=== PATIENT | male | born 1955 | race Caucasian/White ===

== ENCOUNTER 2019-12-30 16:06 | Emergency (ER) | payer OTHER ==
[~2019-12-30] VITALS: Ht 172.7 cm; Wt 69.9 kg
--- NOTE | 2019-12-30 16:20 | NUR ---
Patient transferred to bed 4 via wheelchair by tech. RN evaluating patient at bedside.
--- NOTE | 2019-12-30 16:23 | NUR ---
PT PLACED ON 3 LEAD ECG AND PULSE OX.
[2019-12-30 16:24] VITALS: BP 173/108
[2019-12-30] MEDS ORDERED: NACL 0.9% 1,000 ML IV ONE (16:25)
--- NOTE | 2019-12-30 16:28 | NUR ---
RADIOLOGY AT BEDSIDE
--- NOTE | 2019-12-30 16:33 | NUR ---
64 Y/M PRESENTS TO ED FEELING FAINT X 3 HOURS. PT ALSO REPORTS HEADACHE X 3 MONTHS C LIGHT SENSITIVITY, BLURRED VISION, NAUSEA. CHILLS X 2 DAY. PT REPORTS DRY MOUTH X 1 DAY. PT REPORTS 5/10 OCCIP[facility], ON AND OFF HEAD PAIN. PT WAS SEEN LAST FRIDAY FOR HTN OF 200/150. DENIES ANY CHEST PAIN, SOB, COUGH. PT A &O X 4, RR EVEN AND UNLABORED. LUNGS CLEAR. ABD SOFT. BS ACTIVE. PMH- HTN, INSOMNIA RX- LOSARTAN, LIPITOR, ZOLPIDEM, ZOLOFT NKDA
--- NOTE | 2019-12-30 16:37 | NUR ---
DR. ZIMMERMAN AT BEDSIDE.
[2019-12-30 16:54] LABS: BASOPHILS % (AUTO) 0.5 % (0.0-2.0); EOSINOPHILS % (AUTO) 0.6 % (0.0-4.0); HEMATOCRIT 41.3 % (36-52); HEMOGLOBIN 13.9 g/dL (12.0-18.0); LYMPHOCYTES % (AUTO) 13.5 % (20.5-51.1); MEAN CORPUSCULAR HEMOGLOBIN 30 pg (27-31); MEAN CORPUSCULAR HGB CONC 34 g/dL (33-37); MEAN CORPUSCULAR VOLUME 88.8 fL (80-94); MONOCYTES # (AUTO) 0.5 K/uL (0.8-1.0); MONOCYTES % (AUTO) 7.2 % (1.7-9.3); NEUTROPHILS # (AUTO) 5.7 K/uL (1.8-7.7); NEUTROPHILS % (AUTO) 78.2 % (42.2-75.2); PLATELET COUNT (AUTO) 194 K/uL (140-450); RED BLOOD CELL COUNT(AUTO) 4.65 MIL/uL (4.20-6.10); RED CELL DISTRIBUTION WIDTH 13.1 % (11.6-13.7); WHITE BLOOD COUNT (AUTO) 7.2 K/uL (4.8-10.8)
--- NOTE | 2019-12-30 17:07 | NUR ---
PT TAKEN TO CT VIA WHEELCHAIR.
[2019-12-30 17:15] LABS: ALBUMIN 3.7 g/dL (3.4-5.0); ANION GAP 11.2 (8-16); CARBON DIOXIDE 26.5 mmol/L (21-32); POTASSIUM 3.7 mmol/L (3.5-5.1); TOTAL BILIRUBIN 0.4 mg/dL (0.0-1.0)
[2019-12-30 18:03] VITALS: BP 160/95
--- NOTE | 2019-12-30 18:03 | NUR ---
Patient discharged with v/s stable. Written and verbal after care instructions given and explained. Patient verbalized understanding. Ambulatory with steady gait. All questions addressed prior to discharge. Advised to follow up with PMD.
== END 2019-12-30 18:03 | disposition home or self-care (01) ==
LOC: MED 16:06
DX: F41.9 Anxiety disorder, unspecified (principal); G47.00 Insomnia, unspecified; I10 Essential (primary) hypertension
CPT/HCPCS: 36415; 70450; 71045; 80053; 84484; 85025; 93005; 96360; 99285; J7030; Q0092